=== PATIENT | female | born 1980 ===

== ENCOUNTER 2022-02-22 05:30 | Day surgery (SDC) | payer OTHER ==
[2022-02-22] MEDS ORDERED: NEXIUM 24HR20 MG PO (10:20)
== END 2022-02-22 12:15 | disposition home or self-care (01) ==
LOC: AMB-ENDOS 05:30
PROVIDERS: ATTEND Surgery
DX: M75.121 Complete rotator cuff tear or rupture of right shoulder, not specified as traumatic (principal); Z88.8 Allergy status to other drugs, medicaments and biological substances; Z88.0 Allergy status to penicillin; I10 Essential (primary) hypertension; E78.5 Hyperlipidemia, unspecified; Z87.891 Personal history of nicotine dependence; F41.9 Anxiety disorder, unspecified